=== PATIENT | female | born 1965 | race Caucasian/White ===

== ENCOUNTER 2019-10-29 10:19 | Outpatient (CLI) | payer MEDICARE, SELFPAY ==
--- NOTE | ~2019-10-29 | MM_ITS ---
EXAMINATION: MM screening [facility] BI w [facility] HISTORY: Screening mammogram TECHNIQUE: Craniocaudal and mediolateral oblique 3-D tomosynthesis images were obtained and synthetic 2-D images were generated. CAD analysis was submitted and interpreted. COMPARISON: 08/02/2018, 07/17/2018, 10/10/1915 BREAST PARENCHYMAL COMPOSITION: There are scattered areas of fibroglandular density. FINDINGS: There is no evidence of suspicious mass, calcification, or architectural distortion to sugg est malignancy in either breast. There has been no suspicious interval change. IMPRESSION: 1. No mammographic evidence of malignancy. 2. Recommend routine screening mammography in one year. BI-RADS Category 1: Negative Reviewed, dictated and finalized at location A.
== END 2019-10-29 10:20 | disposition home or self-care (01) ==
PROVIDERS: PCP Family Medicine; Visit Provider Nurse Practitioner Family
DX: Z12.31 Encounter for screening mammogram for malignant neoplasm of breast (principal)
CPT/HCPCS: 77063; 77067

== ENCOUNTER 2020-06-10 07:19 | Outpatient (NON) | payer MEDICARE, SELFPAY ==
[2020-06-10 19:05] LABS: SARS-CoV-2 RNA PCR Negative
== END 2020-06-10 07:20 ==
PROVIDERS: PCP Family Medicine; Visit Provider Physician Assistant Medical
DX: R68.89 Other general symptoms and signs (principal); Z20.828 Contact with and (suspected) exposure to other viral communicable diseases
CPT/HCPCS: 87635; C9803; U0003

== ENCOUNTER 2021-04-28 10:27 | Outpatient (CLI) | payer MEDICARE, SELFPAY ==
--- NOTE | ~2021-04-28 | XR_ITS ---
EXAMINATION: XR hand RT min 3V EXAM DATE: 04/28/2021 10:50 INDICATION: M79.644 - Pain in right finger(s) X 3 3 months, scaphoid pain. TECHNIQUE: Right hand frontal, lateral and oblique projections obtained and reviewed. There is no pr ior study for comparison. FINDINGS: Right metacarpal bones and scaphoid are unremarkable. There are no acute fractures or disl ocations identified. There is no subcutaneous gas. The soft tissue is unremarkable. Rings along t he 4th and 5th digits. No other radiopaque foreign bodies. There are no bony erosions identified. IMPRESSION: 1. Unremarkable right hand exam. Reviewed, dictated and finalized at location A.
== END 2021-04-28 10:28 | disposition home or self-care (01) ==
LOC: ANHIMG 10:33
PROVIDERS: PCP Family Medicine; Visit Provider Nurse Practitioner Family
DX: M79.644 Pain in right finger(s) (principal)
CPT/HCPCS: 73130

== ENCOUNTER 2023-05-09 03:04 | Day surgery (SDC) | payer MEDICARE, SELFPAY ==
[2023-04-25 13:52] VITALS: BMI 37.3
[2023-05-09 11:20] VITALS: BP 137/92; PULSE 92; RESP 16; TEMP 36.4; O2SAT 98
[2023-05-09] MEDS: LACTATED RINGERS 1,000 ML 150 ML IV CONT (11:31)
--- NOTE | 2023-05-09 11:55 | PM.HPGS ---
History of Present Illness History of Present Illness Consent: Risks, benefits, and alternatives have been discussed and questions answered. Patient agrees to proceed with procedure. Chief complaint: neoplasm screening Narrative: Rosa Alcaraz is a 58 year old female Presents for screening colonoscopy. Patient's current weight appetite and bowel movements are normal. Patient denies abdominal pain. She has had no bleeding. Family history noncontributory. Review of Systems Review of Systems: Review of systems noncontributory. [facility] Past Medical History Medical History (Updated 02/17/23 @ 12:38 by Michael Otto MD) BMI 36.0-36.9,adult Hemorrhoids Numbness and tingling in left hand Screen for colon cancer Urinary tract infection Family History Family History Grandparent Family history of malignant neoplasm Father Family history of coronary artery disease Mother No problems noted. Sibling No problems noted. Social History Social History Smoking status: Never smoker Second hand tobacco smoke exposure: Yes Alcohol intake: current Drinks per week: 2 Substance use: never Substance use type: does not use Living arrangements: with family Occupation/Education: occupation Additional occupation/education comments: home Gender identity (if verbalized by the patient): Female Spiritual care concerns: No Meds Home Medications and Allergies Home Medications Medication Instructions Recorded Confirmed Type alprazolam 0.5 mg tablet (Xanax) 0.5 mg PO BID PRN anxiety 08/02/22 05/09/23 History lurasidone 80 mg tablet (Latuda) 80 mg PO DAILY 08/02/22 05/09/23 History duloxetine 60 mg capsule,delayed 120 mg PO DAILY 02/17/23 05/09/23 History release (Cymbalta) losartan 50 mg tablet 50 mg PO DAILY #90 tabs 02/17/23 05/09/23 Rx [id number]-djxebqm-bcdysqux 50 1 tablet PO Q6H PRN Headache 04/25/23 05/09/23 History mg-325 mg-40 mg tablet pantoprazole 40 mg tablet,delayed 40 mg PO DAILY 04/25/23 05/09/23 History release sulindac 200 mg tablet 200 mg PO BID 04/25/23 05/09/23 History Allergies Allergy/AdvReac Type Severity Reaction Status Date / Time cyclobenzaprine Allergy Intermediate LETHARGY Verified 05/09/23 11:17 divalproex sodium Allergy Unknown Unknown Verified 05/09/23 11:17 lamotrigine Allergy Unknown Unknown Verified 05/09/23 11:17 tramadol Allergy Unknown Unknown Verified 05/09/23 11:17 Vital Signs Vital Signs - 24 hr 05/09/23 11:20 Temperature 97.6 F Pulse Rate 92 Respiratory Rate 16 Blood Pressure 137/92 H Pulse Oximetry 98 Oxygen Delivery Room Air Exam Narrative: Physical exam reveals patient to be alert. Vital signs stable. HEENT exam is unremarkable. Patient is anicteric. Lungs are clear to auscultation and percussion. Heart is without murmur or extra sounds. Abdomen bowel sounds are present soft nontender with no organomegaly. Digital external rectal exam normal. Assessment and Plan Assessment and plan (1) Screen for colon cancer: Code(s): Z12.11 - Encounter for screening for malignant neoplasm of colon Status: Acute Assessment and Plan: Patient presents for initial neoplasia screening colonoscopy. further recommendations may be given after endoscopy.
--- NOTE | 2023-05-09 12:54 | WPDANESEPPF ---
Anes - Initial Pre Proc Eval Procedure: Operation Date: 05/09/23 12:30 Proposed Procedures p Screening Colonoscopy - Kai Amos MD Date/Time: 05/09/23 12:54 Surgeon: Kai Amos MD Pre Op Diagnosis: neoplasm screening Patient Data Age: 58 Gender: F Height: 1.7 m Weight: 108.4 kg Last Vital Signs Temp 97.6 F 05/09/23 11:20 Pulse 92 05/09/23 11:20 Resp 16 05/09/23 11:20 BP 137/92 H 05/09/23 11:20 Pulse Ox 98 05/09/23 11:20 O2 Del Method Room Air 05/09/23 11:20 Allergies Allergy/AdvReac Type Severity Reaction Status Date / Time cyclobenzaprine Allergy Intermediate LETHARGY Verified 05/09/23 11:17 divalproex sodium Allergy Unknown Unknown Verified 05/09/23 11:17 lamotrigine Allergy Unknown Unknown Verified 05/09/23 11:17 tramadol Allergy Unknown Unknown Verified 05/09/23 11:17 Home Medications Medication Instructions Recorded Confirmed Type alprazolam 0.5 mg tablet (Xanax) 0.5 mg PO BID PRN anxiety 08/02/22 05/09/23 History lurasidone 80 mg tablet (Latuda) 80 mg PO DAILY 08/02/22 05/09/23 History duloxetine 60 mg capsule,delayed 120 mg PO DAILY 02/17/23 05/09/23 History release (Cymbalta) losartan 50 mg tablet 50 mg PO DAILY #90 tabs 02/17/23 05/09/23 Rx [id number]-smgdmge-niwgrhtm 50 1 tablet PO Q6H PRN Headache 04/25/23 05/09/23 History mg-325 mg-40 mg tablet pantoprazole 40 mg tablet,delayed 40 mg PO DAILY 04/25/23 05/09/23 History release sulindac 200 mg tablet 200 mg PO BID 04/25/23 05/09/23 History Patient hx anesthesia problems: none Family hx anesthesia problems: none Results Review: All pre-operative results and documents have been reviewed as part of the pre-operative evaluation. [facility] Past Medical History Medical History (Updated 02/17/23 @ 12:38 by Michael Otto MD) BMI 36.0-36.9,adult Hemorrhoids Numbness and tingling in left hand Screen for colon cancer Urinary tract infection Family History Family History Grandparent Family history of malignant neoplasm Father Family history of coronary artery disease Mother No problems noted. Sibling No problems noted. Social History Social History Smoking status: Never smoker Second hand tobacco smoke exposure: Yes Alcohol intake: current Drinks per week: 2 Substance use: never Substance use type: does not use Living arrangements: with family Occupation/Education: occupation Additional occupation/education comments: home Gender identity (if verbalized by the patient): Female Spiritual care concerns: No Anes - Eval Final PreProcedure Day of Procedure 05/09/23 12:54 Patient weight: obese Heart: regular rate and rhythm Lungs: clear to auscultation Airway: Mallampati scale class III Neurological: alert and oriented Last oral intake: >/= 8 hours ASA classification: III Emergent: no Anesthetic plan: proceed Anesthesia type and monitoring: general GIVS and standard monitoring Results Review: All pre-operative results and documents have been reviewed as part of the pre-operative evaluation. Informed Consent: The patient's anesthetic plan and its attendant risks and benefits were discussed with the patient/family/POA. Questions were solicited and answers provided to the satisfaction of the patient/family/POA.
[2023-05-09 13:23] VITALS: BP 143/93; PULSE 96; RESP 22; O2SAT 97
[2023-05-09 13:33] VITALS: BP 162/105; PULSE 97; RESP 26; O2SAT 98
[2023-05-09 13:43] VITALS: BP 147/97; PULSE 93; RESP 18; O2SAT 97
== END 2023-05-09 13:54 | disposition home or self-care (01) ==
PROVIDERS: PCP Family Medicine; Visit Provider Internal Medicine Gastroenterology
PROC: 0DJD8ZZ Inspection of Lower Intestinal Tract, Via Natural or Artificial Opening Endoscopic (ICD-10-PCS; CPT 45378; principal; 2023-05-09 12:30)
DX: Z12.11 Encounter for screening for malignant neoplasm of colon (principal); E66.9 Obesity, unspecified; Z68.37 Body mass index [BMI] 37.0-37.9, adult
CPT/HCPCS: G0121; J2704; J7120

== ENCOUNTER 2023-05-12 08:37 | Outpatient (CLI) | payer MEDICARE, SELFPAY ==
--- NOTE | ~2023-05-12 | MM_ITS ---
EXAMINATION: MM screening [facility] HISTORY: Screening TECHNIQUE: Craniocaudal and mediolateral oblique 3-D tomosynthesis images were obtained and synthetic 2-D images were generated. CAD analysis was submitted and interpreted. COMPARISON: Comparison to multiple prior studies sequentially, with oldest reviewed study dated 10/02. BREAST PARENCHYMAL COMPOSITION: Breast composed of scattered areas of fibroglandular density FINDINGS: There are developing clustered calcifications in the upper outer quadrant of the left breas t, middle third. The right breast is stable without evidence for malignancy. IMPRESSION: 1. Developing clustered calcifications upper outer quadrant of the left breast. 2. Magnification views are recommended. BI-RADS Category 0: Incomplete: Needs additional imaging evaluation. Reviewed, dictated and finalized at location A.
== END 2023-05-12 08:38 | disposition home or self-care (01) ==
LOC: ANHIMG 08:37
PROVIDERS: PCP Family Medicine; Visit Provider Nurse Practitioner Family
DX: Z12.31 Encounter for screening mammogram for malignant neoplasm of breast (principal); R92.8 Other abnormal and inconclusive findings on diagnostic imaging of breast
CPT/HCPCS: 77063; 77067

== ENCOUNTER 2023-06-02 12:05 | Outpatient (CLI) | payer MEDICARE, SELFPAY ==
--- NOTE | ~2023-06-02 | MMUS_ITS ---
EXAMINATION: MM diagnostic [facility] LT w [facility], US breast LT limited HISTORY: Developing group calcifications in the upper outer quadrant of the left breast on 05/12/2023 screening mammogram examination TECHNIQUE: Additional ML 3-D tomosynthesis images of the left breast were performed and synthetic 2-D images were generated. Magnification views of left breast. CAD analysis was submitted and interprete d. High resolution upper outer quadrant left breast ultrasound was performed. COMPARISON: 05/12/2023 bilateral screening mammogram 10/29/2019 bilateral screening mammogram FINDINGS: MAMMOGRAPHIC FINDINGS: A cluster of grouped microcalcifications is confirmed in the upper outer quadrant of the left breast at mid depth. There is no sonographic correlate. Stereotactic biopsy is recommended. ULTRASOUND: No suspicious mass or shadowing, cyst or other significant sonographic abnormality of the upper outer quadrant of left breast is detected. IMPRESSION: 1. Indeterminate grouped granular appearing microcalcifications, upper outer quadrant of left breast 2. Upper quadrant left breast stereotactic biopsy is recommended BI-RADS category 4, suspicious findings. Reviewed, dictated and finalized at location A. IMPRESSION: 1. Indeterminate grouped granular appearing microcalcifications, upper outer qu adrant of left breast 2. Upper quadrant left breast stereotactic biopsy is recommended BI-RADS category 4, suspicious findings.
== END 2023-06-02 12:06 | disposition home or self-care (01) ==
LOC: ANHIMG 12:06
PROVIDERS: PCP Family Medicine; Visit Provider Nurse Practitioner Family
DX: R92.8 Other abnormal and inconclusive findings on diagnostic imaging of breast (principal)
CPT/HCPCS: 76642; 77061; 77065; G0279

== ENCOUNTER 2023-06-13 13:04 | Outpatient (CLI) | payer MEDICARE, SELFPAY ==
--- NOTE | ~2023-06-13 | MM_ITS ---
EXAMINATION: MM stereotactic bx LT, MM post biopsy diagnostic LT, MM stereotactic specimen LT, Specim en Radiograph, Tissue Marker Clip Placement, Unilateral Mammogram DATE: 06/13/2023 14:29 (accession [id number]), 06/13/2023 14:29 (accession [id number]), 06/13 14:30 (accession [id number]) INDICATION: Abnormal mammogram: Grouped upper outer quadrant left breast microcalcifications. TECHNIQUE AND FINDINGS: The risks and potential benefits of the procedure were discussed with the patient and written informe d consent was obtained. Timeout procedure was performed. The patient was placed in the prone position on the dedicated stereotactic table with the left breast in craniocaudal compression, and the area o f interest was localized and targeted utilizing digital imaging with stereotaxis. After sterile preparation of the skin, 1% lidocaine was utilized for local anesthesia at the skin pun cture site and 1% lidocaine with epinephrine was utilized for deeper local anesthesia/is about the bi opsy site. A 9G Fincon vacuum assisted biopsy needle was advanced to the level of the calcification o f interest from a cephalad approach utilizing stereotactic guidance and a total of 12 tissue core bio psies were obtained. A specimen radiograph demonstrates that the calcifications of interest are included within the tissue cores. A tissue marker clip was then placed at the biopsy site. A digital mammographic exposure co nfirmed the successful deployment of the biopsy marker. The needle was removed and hemostasis was ac hieved. A sterile bandage was applied. The patient tolerated the procedure well and there is no aishwarya dence of significant immediate complication. The patient was given verbal as well as written postpro cedural instructions prior to discharge from the department. Tissue cores were submitted to surgical pathology for histologic analysis. A 2-view left unilateral digital mammogram was obtained post procedure, demonstrating the tissue maria l er clip in expected position incomplete removal of all microcalcifications of interest.. IMPRESSION: Successful stereotactic biopsy of cluster grouped microcalcifications of the upper outer quadrant of left breast, followed by tissue marker clip placement. Please refer to pathology report for histolo gic analysis. Reviewed, dictated and finalized at Location A. Reviewed, dictated and finalized at location A. IMPRESSION: Successful stereotactic biopsy of cluster grouped microcalcifications of the u pper outer quadrant of left breast, followed by tissue marker clip placement. Please refer to pathology report for histologic analysis. IMPRESSION: Successful stereotactic biopsy of cluster grouped microcalcifications of the u pper outer quadrant of left breast, followed by tissue marker clip placement. Please refer to pathology report for histologic analysis.
== END 2023-06-13 13:05 | disposition home or self-care (01) ==
PROVIDERS: PCP Family Medicine; Visit Provider Physician Assistant Medical
DX: R92.8 Other abnormal and inconclusive findings on diagnostic imaging of breast (principal)
CPT/HCPCS: 19081; 77065; 88305; A4648